=== PATIENT | female | born 1975 | race Caucasian/White ===

== ENCOUNTER 2016-09-25 12:54 | Observation (INO) | payer MEDICAID ==
[2016-09-25 12:55] VITALS: BMI 57.2
--- NOTE | 2016-09-25 13:31 | ED PDOC ---
Lower Extremity Pain/Injury Time Seen by Provider: 09/25/16 13:11 Chief Complaint (Nursing): Lower Extremity Problem/Injury Chief Complaint (Provider): Right toe pain History Per: Patient History/Exam Limitations: no limitations Onset/Duration Of Symptoms: Days (4) Current Symptoms Are (Timing): Still Present Severity: Moderate Additional History Per: Patient Additional Complaint(s): Seng Ramos is a 41 y/o female presenting to the ER on 09/25/2016 with complaints of pain to the right pad of the first digit. Pain, which she describes as "throbbing", originated three days ago after she stepped on a questionable metal object. She states the pain has been persistent since onset and is associated with erythema, prompting her to seek medical evaluation. She denies any fever, chills, nausea, vomiting, or tingling sensations. Past Medical History Reviewed: Historical Data, Nursing Documentation, Vital Signs Vital Signs: Last Vital Signs Temp 98.9 F 09/25/16 13:04 Pulse 78 09/25/16 13:04 Resp 18 09/25/16 13:04 BP 144/94 H 09/25/16 13:04 Pulse Ox 79 L 09/25/16 13:04 - Medical History PMH: Arthritis (BOTH KNEES), Asthma (VERY MILD. TAKES NO MEDS; NO INHALER), Hypothyroidism Denies: Chronic Kidney Disease - Surgical History Surgical History: Cholecystectomy (2002), Endoscopy, - Family History Family History: States: Unknown Family Hx - Social History Current smoker - smoking cessation education provided: Yes Alcohol: None Drugs: Denies - Home Medications Home Medications: Ambulatory Orders Medication Instructions Recorded Cyclobenzaprine [Flexeril] 10 mg PO TID PRN 09/25/16 Levothyroxine [Synthroid] 125 mcg PO DAILY 09/25/16 traMADol [Ultram] 25 mg PO Q6H PRN 09/25/16 - Allergies Allergies/Adverse Reactions: Allergies Allergy/AdvReac Type Severity Reaction Status Date / Time aspirin Allergy VOMITING Verified 09/25/16 13:08 IV DYE Allergy Severe ANAPHYLAXIS Uncoded 01/28/15 08:20 Review of Systems ROS Statement: Except As Marked, All Systems Reviewed And Found Negative Constitutional: Negative for: Fever, Chills Gastrointestinal: Negative for: Nausea, Vomiting Musculoskeletal: Positive for: Foot Pain ((+) right toe pain ) Neurological: Negative for: Weakness, Numbness Physical Exam - Reviewed Nursing Documentation Reviewed: Yes Vital Signs Reviewed: Yes - Physical Exam Appears: Positive for: Non-toxic, No Acute Distress Head Exam: Positive for: ATRAUMATIC, NORMOCEPHALIC Skin: Positive for: Normal Color. Negative for: Rash Eye Exam: Positive for: Normal appearance Neck: Positive for: Normal Extremity: Positive for: Tenderness ((+) ttp to first digit ), Swelling ((+) swelling and erythema to the first MTP), Other (neurovasculary intact, warm to touch; foreign object underneath skin surface noted). Negative for: Deformity Neurologic/Psych: Positive for: Alert, Oriented. Negative for: Motor/Sensory Deficits - Laboratory Results Result Diagrams: 09/25/16 16:25 09/25/16 16:25 - ECG ECG Rhythm: Positive for: Normal QRS, Normal ST Segment, Sinus Rhythm O2 Sat by Pulse Oximetry: 79 - Radiology X-Ray: Interpreted by Me X-Ray Interpretation: No Acute Disease Medical Decision Making Medical Decision Makin:11 Initial Impression- 41 y/o female with right toe pain Initial Plan- * XR Right Foot Case will be consulted with podiatry resident. 15:17 Additional order of Ancef IVPB was placed. Podiatry consulted- attempted to remove FB, however unable to do so bedside. pt will need OR for FB removal. Pt will be admitted to [facility] for surgery from podiatry. surgery will be at 645pm pt is NPO pt is medically clear for OR Documented by Felicita Rios, acting as a scribe for Petty Cabrales PA-C All medical record entries made by the Scribe were at my direction and personally dictated by me. I have reviewed the chart and agree that the record accurately reflects my personal performance of the history, physical exam, medical decision making, and the department course for this patient. I have also personally directed, reviewed, and agree with the discharge instructions and disposition. Disposition - Clinical Impression Clinical Impression: Foreign body - Patient ED Disposition Is Patient to be Admitted: Yes - Disposition Disposition Time: 17:26 Condition: STABLE - Pt Status Changed To: Hospital Disposition Of: SDS- Endo,OR,Cath,IR - POA Present On Arrival: None
[2016-09-25] MEDS ORDERED: ceFAZolin 1 GM in Sodium Chloride 0.9% 100 ML IVPB STA (15:15)
[2016-09-25] MEDS ORDERED: Lidocaine 1% Inj (20ml) IJ STA (15:21)
[2016-09-25] MEDS ORDERED: Lidocaine 1% Inj (20ml) ONE ×2 (15:22→18:46)
[2016-09-25 16:46] LABS: BASO # 0.1 K/uL (0.0-0.2); BASO % 0.7 % (0.0-2.0); EOS # 0.1 K/uL (0.0-0.7); HEMOGLOBIN 12.8 g/dL (12.0-16.0); LYMPH # 2.3 K/uL (1.0-4.3); LYMPH % 22.5 % (20.0-40.0); MEAN CORPUSCULAR HEMOGLOBIN 27.3 pg (27.0-31.0); MEAN CORPUSCULAR HGB CONC 32.9 g/dL (33.0-37.0); MEAN PLATELET VOLUME 8.5 fl (7.2-11.7); MONO # 0.5 K/uL (0.0-0.8); MONO % 4.7 % (0.0-10.0); NEUT # 7.2 K/uL (1.8-7.0); NEUT % 71.1 % (50.0-75.0); RBC 4.67 Mil/uL (3.80-5.20); RED CELL DISTRIBUTION WIDTH 15.3 % (11.5-14.5); WHITE BLOOD COUNT 10.1 K/uL (4.8-10.8)
[2016-09-25 17:01] LABS: ALB/GLOB RATIO 1.2 (1.0-2.1); ALBUMIN 4.3 g/dL (3.5-5.0); ALT/SGPT 32 U/L (9-52); AST/SGOT 26 U/L (14-36); BLOOD UREA NITROGEN 11 mg/dl (7-17); CALCIUM 9.5 mg/dL (8.4-10.2); GFR AFRICAN-AMERICAN > 60; GFR NON-AFRICAN AMERICAN > 60
--- NOTE | 2016-09-25 17:01 | RAD ---
PROCEDURE: Right Foot Radiographs. HISTORY: FB in toe COMPARISON: None. FINDINGS: BONES: Normal. No fracture. JOINTS: Normal. SOFT TISSUES: Radiopaque foreign body, needle fragment in the soft tissues readily apparent adjacent to the distal tuft region right 1st digit. OTHER FINDINGS: None. IMPRESSION: Needle fragment, foreign body 10.6 mm identified 1st digit region. This is adjacent to but does not appear to invade the distal tuft of the 1st digit.
[2016-09-25 17:10] LABS: PARTIAL THROMBOPLASTIN TIME 29.7 Seconds (25.6-37.1); PROTHROMBIN TIME 11.3 Seconds (9.8-13.1)
--- NOTE | 2016-09-25 17:36 | CP.PCM.CON ---
History of Present Illness - History of Present Illness History of Present Illness: 41 year old female patient seen at bedside in ED holding for a foreign body to right great toe. Patient states that Sunday night around 12AM she was walking around her house barefoot when she felt something go into her right big toe. Patient rates the pain as 8/10 which has worsened since Sunday. Patient describes the pain as throbbing. Patient states she tried getting the object out by soaking her right foot in a soap/sugar solution but was not successful. Patient denies N/V/F/D/C/SOB/CP. No other pedal complaints at this time. PMH: Jacy's thyroiditis, HLD PSH: FH: non-contributory SH: denies Meds: Levothyroxine All: Aspirin, IVP Dye ROS: negative except as per HPI Review of Systems - Review of Systems All systems: reviewed and no additional remarkable complaints except Past Patient History - Past Medical History & Family History Past Medical History?: Yes - Past Social History Alcohol: None Drugs: Denies - CARDIAC Hx Cardiac Disorders: No - PULMONARY Hx Asthma: Yes (VERY MILD. TAKES NO MEDS; NO INHALER) - NEUROLOGICAL Hx Neurological Disorder: No - HEENT Hx HEENT Problems: No - RENAL Hx Chronic Kidney Disease: No - ENDOCRINE/METABOLIC Hx Hypothyroidism: Yes - HEMATOLOGICAL/ONCOLOGICAL Hx Blood Disorders: No - INTEGUMENTARY Hx Dermatological Problems: No - MUSCULOSKELETAL/RHEUMATOLOGICAL Hx Arthritis: Yes (BOTH KNEES) - GASTROINTESTINAL Hx Gastrointestinal Disorders: Yes Hx Ulcer: Yes (3 ULCERS) - GENITOURINARY/GYNECOLOGICAL Hx Genitourinary Disorders: No - SURGICAL HISTORY Hx Cholecystectomy: Yes (2002) - ANESTHESIA Hx Anesthesia: Yes Hx Anesthesia Reactions: Yes (LOW HEART RATE) Hx Malignant Hyperthermia: No Meds Allergies/Adverse Reactions: Allergies Allergy/AdvReac Type Severity Reaction Status Date / Time aspirin Allergy VOMITING Verified 09/25/16 13:08 IV DYE Allergy Severe ANAPHYLAXIS Uncoded 01/28/15 08:20 Physical Exam - Constitutional Appears: Well, Non-toxic, No Acute Distress - Extremities Exam Additional comments: Vasc: DP and PT pulses palpable 2/4 b/l. CFT <3 seconds to all digits x10. TG warm to warm. Edema noted to right hallux. Neuo: Gross sensation intact b/l. Derm: Rubor noted to plantarmedial aspect of right hallux with sanches discoloration in area of foreign body entrance. No obvious open lesions noted. Ortho: pain on palpation noted to right hallux. Tenderness upon ROM to right hallux. - Neurological Exam Neurological exam: Alert, Oriented x3 - Psychiatric Exam Psychiatric exam: Normal Affect, Normal Mood Results - Vital Signs Recent Vital Signs: Last Vital Signs Temp 98.9 F 09/25/16 13:04 Pulse 78 09/25/16 13:04 Resp 18 09/25/16 13:04 BP 144/94 H 09/25/16 13:04 Pulse Ox 79 L 09/25/16 17:26 - Labs Result Diagrams: 09/25/16 16:25 09/25/16 16:25 Labs: Laboratory Results - last 24 hr 09/25/16 09/25/16 09/25/16 16:25 16:25 16:25 WBC 10.1 RBC 4.67 Hgb 12.8 Hct 38.8 MCV 83.0 MCH 27.3 MCHC 32.9 L RDW 15.3 H Plt Count 274 MPV 8.5 Neut % (Auto) 71.1 Lymph % (Auto) 22.5 [place] % (Auto) 4.7 Eos % (Auto) 1.0 Baso % (Auto) 0.7 Neut # 7.2 H Lymph # 2.3 [place] # 0.5 Eos # 0.1 Baso # 0.1 PT 11.3 INR 1.0 APTT 29.7 Sodium 137 Potassium 4.1 Chloride 101 Carbon Dioxide 28 Anion Gap 13 BUN 11 Creatinine 0.7 Est GFR ( Amer) > 60 Est GFR (Non-Af Amer) > 60 Random Glucose 87 Calcium 9.5 Total Bilirubin 0.4 AST 26 ALT 32 Alkaline Phosphatase 80 Total Protein 7.9 Albumin 4.3 Globulin 3.6 Albumin/Globulin Ratio 1.2 Serum HCG, Qual 09/25/16 16:25 WBC RBC Hgb Hct MCV MCH MCHC RDW Plt Count MPV Neut % (Auto) Lymph % (Auto) [place] % (Auto) Eos % (Auto) Baso % (Auto) Neut # Lymph # [place] # Eos # Baso # PT INR APTT Sodium Potassium Chloride Carbon Dioxide Anion Gap BUN Creatinine Est GFR ( Amer) Est GFR (Non-Af Amer) Random Glucose Calcium Total Bilirubin AST ALT Alkaline Phosphatase Total Protein Albumin Globulin Albumin/Globulin Ratio Serum HCG, Qual Negative Assessment & Plan - Assessment and Plan (Free Text) Assessment: 41 year old female PMHx Jacy's thyroiditis, HLD with foreign body in right hallux Plan: Patient seen and evaluated. Discussed with attending, Dr. Martinez. Chart, labs, vitals reviewed = WBC @10.1, afebrile X-rays reviewed: 10.6 mm foreign body [possible needle fragment] in distal right hallux. This is adjacent to but does not appear to invade the distal tuft of the hallux. Attempt was made to remove foreign body at bedside in ED however was unable to do so. Patient will need OR for foreign body removal. Patient will be admitted under family medicine. Pt NPO status was confirmed; pt last ate and drank at 7AM this morning. CXR, EKG, CBC, BMP, ordered. Pt has exhausted all conservative tx at this time and is opting for surgical intervention. Pt was explained procedure and post-operative course. All pts questions were answered to satisfaction. No guarantees were made Pt understands all risks, benefits, and complications of procedure Pt will follow up with Dr. Martinez - Date & Time Date: 09/25/16 Time: 04:45
--- NOTE | 2016-09-25 17:40 | RAD ---
HISTORY: medical clearance COMPARISON: No prior. TECHNIQUE: Chest PA and lateral FINDINGS: LUNGS: No active pulmonary disease. PLEURA: No significant pleural effusion identified. No pneumothorax apparent. CARDIOVASCULAR: Normal. OSSEOUS STRUCTURES: No significant abnormalities. VISUALIZED UPPER ABDOMEN: Normal. OTHER FINDINGS: None. IMPRESSION: No active disease.
--- NOTE | 2016-09-25 18:28 | CP.PCM.HP ---
History of Present Illness - History of Present Illness History of Present Illness: 41 year old morbid obese female patient presented to ED with right great toe pain due to foreign body. Patient states that Sunday night around 12AM she was walking around her house barefoot when she felt something go into her right big toe with minimal blood noted. Patient rates the pain as 8/10 which has worsened since Sunday. Patient describes the pain as throbbing. Patient states she tried getting the object out by soaking her right foot in a soap/sugar solution but was not successful. Patient denies N/V/F/D/C/SOB/CP. Attempt was made by Podiatry Resident to remove foreign body at bedside in ED however was unable to do so. Patient will need OR for foreign body removal. Last ate and drank at 7AM this morning. PMH: Jacy's thyroiditis, HLD, Asthma (mild intermittent), morbid obese Meds: Levothyroxine 125mcg Allergies: Aspirin, IVP Dye PSHx: Family Hx: non-contributory Social Hx: Smokes 1ppd x 28yrs. Etoh Occasional user. Present on Admission - Present on Admission Any Indicators Present on Admission: No Review of Systems - Review of Systems All systems: reviewed and no additional remarkable complaints except (mentioned in HPI) Past Patient History - Past Medical History & Family History Past Medical History?: Yes - Past Social History Alcohol: None Drugs: Denies - CARDIAC Hx Cardiac Disorders: No - PULMONARY Hx Asthma: Yes (VERY MILD. TAKES NO MEDS; NO INHALER) - NEUROLOGICAL Hx Neurological Disorder: No - HEENT Hx HEENT Problems: No - RENAL Hx Chronic Kidney Disease: No - ENDOCRINE/METABOLIC Hx Hypothyroidism: Yes - HEMATOLOGICAL/ONCOLOGICAL Hx Blood Disorders: No - INTEGUMENTARY Hx Dermatological Problems: No - MUSCULOSKELETAL/RHEUMATOLOGICAL Hx Arthritis: Yes (BOTH KNEES) - GASTROINTESTINAL Hx Gastrointestinal Disorders: Yes Hx Ulcer: Yes (3 ULCERS) - GENITOURINARY/GYNECOLOGICAL Hx Genitourinary Disorders: No - SURGICAL HISTORY Hx Cholecystectomy: Yes (2002) - ANESTHESIA Hx Anesthesia: Yes Hx Anesthesia Reactions: Yes (LOW HEART RATE) Hx Malignant Hyperthermia: No Meds Allergies/Adverse Reactions: Allergies Allergy/AdvReac Type Severity Reaction Status Date / Time aspirin Allergy VOMITING Verified 09/25/16 13:08 IV DYE Allergy Severe ANAPHYLAXIS Uncoded 01/28/15 08:20 Physical Exam - Constitutional Appears: Well, Non-toxic, No Acute Distress, Other (morbid obese) - Head Exam Head Exam: ATRAUMATIC, NORMAL INSPECTION, NORMOCEPHALIC - Eye Exam Eye Exam: EOMI, Normal appearance - Respiratory Exam Respiratory Exam: Clear to Auscultation Bilateral, NORMAL BREATHING PATTERN - Cardiovascular Exam Cardiovascular Exam: REGULAR RHYTHM, RRR, +S1, +S2 - GI/Abdominal Exam GI & Abdominal Exam: Normal Bowel Sounds, Soft. absent: Tenderness Additional comments: obese - Extremities Exam Extremities exam: Positive for: normal inspection (with right foot in wound dressing, painful around area, no other lesions noted. 2+ pulses, senation intact) - Neurological Exam Neurological exam: Alert, Oriented x3 - Psychiatric Exam Psychiatric exam: Normal Affect, Normal Mood - Skin Skin Exam: Dry, Intact, Normal Color, Warm Results - Vital Signs Recent Vital Signs: Last Vital Signs Temp 98.2 F 09/25/16 17:42 Pulse 79 09/25/16 17:42 Resp 18 09/25/16 17:42 BP 130/70 09/25/16 17:42 Pulse Ox 98 09/25/16 17:42 - Labs Result Diagrams: 09/25/16 16:25 09/25/16 16:25 Assessment & Plan (1) Foreign body Assessment and Plan: Chart, labs, vitals reviewed, unremarkable X-rays reviewed: 10.6 mm foreign body [possible needle fragment] in distal right hallux. This is adjacent to but does not appear to invade the distal tuft of the hallux. Podiatry on board, will bring patient to OR tonight for removal of foreign body EKG reviewed, NSR, no acute changes All pts questions were answered by pencil inspector Patient medically optimized for procedure at this time. Status: Acute (2) Jacy's thyroiditis Assessment and Plan: Continue current medication as prescribed. Status: Acute (3) Morbidly obese Assessment and Plan: Encourage post-op follow up for weight loss and lifestyle modifications Status: Acute
[2016-09-25] MEDS ORDERED: Midazolam 2 MG/2 ML VIAL ONE (18:42)
[2016-09-25] MEDS ORDERED: Propofol 10 mg/ml Inj (20 ML) ONE (18:42)
[2016-09-25] MEDS ORDERED: Bupivacaine 0.5% Inj(30mL) ONE (18:46)
[2016-09-25] MEDS ORDERED: Lactated Ringer's 1,000 ML IV ONE (19:17)
[2016-09-25] MEDS ORDERED: Lidocaine 1% Inj (20ml) IJ ONE (19:20)
[2016-09-25] MEDS ORDERED: Bupivacaine 0.5% 50 ML IJ ONE (19:20)
[2016-09-25] MEDS ORDERED: HYDROmorphone 0.5 mg/0.5 ml ISec IVP PRN (20:07)
--- NOTE | 2016-09-25 20:49 | PCM.SURG1 ---
Surgeon's Initial Post Op Note - Surgeon's Notes Surgeon: Dr. Manolo Martinez DPM Focus Puller: Dr. Jono Kim PGY1, Dr. Cara Webber PGY1 Type of Anesthesia: IV Sedation Pre-Operative Diagnosis: Right hallux foreign body Operative Findings: See operative report. Materials: 4-0 prolene. Injectables : none Post-Operative Diagnosis: Same as above Operation Performed: Right hallux foreign body removal Specimen/Specimens Removed: None Estimated Blood Loss: EBL {In ML}: 1 Blood Products Given: N/A Drains Used: No Drains Post-Op Condition: Good Date of Surgery/Procedure: 09/25/16 Time of Surgery/Procedure: 19:00
[2016-09-25 21:46] VITALS: BP 107/71; PULSE 75; RESP 18; TEMP 98.9; O2SAT 98
--- NOTE | 2016-09-27 00:01 | CARD ---
APPROVED REPORT EKG Measurement Heart [id number] <Conclusion> Normal sinus rhythm Normal ECG
--- NOTE | 2016-10-03 09:06 | RAD ---
PROCEDURE: Right Foot Radiographs. HISTORY: Not provided COMPARISON: None. FINDINGS: BONES: Normal. No fracture. JOINTS: Normal. SOFT TISSUES: Normal. OTHER FINDINGS: None. IMPRESSION: Normal right foot radiographs.
--- NOTE | 2016-10-04 09:33 | OP ---
PROCEDURE DATE: 09/25/2016 SURGEON: Manolo Torres DPM MILITARY LAWYER: Jono Kim, PGY1; Robb Webber PGY1 [employer] SHADE ASSEMBLER: Dr. Gastelum. ANESTHESIA: IV sedation with local, 17 mL of 1:1 mixture of 1% lidocaine plain and 0.5% Marcaine plain. PREOPERATIVE DIAGNOSIS: Right hallux foreign body. POSTOPERATIVE DIAGNOSIS: Right hallux foreign body. PROCEDURE: Right hallux foreign body removal. INDICATIONS: The patient is a 41-year-old female with the above diagnosis. The patient has requested all conservative treatment at this time and now requests surgical intervention. The patient finally consented after careful explanation of risks, benefits, complications and alternatives for surgical procedure. No guarantees were given nor implied. PROCEDURE IN DETAIL: The patient was brought into the operative room and placed on the operating room table in a supine position. A well-padded pneumatic ankle tourniquet was applied to the patient's right ankle in a supramalleolar position. Timeout was performed for identification of the correct patient and procedure. The patient received a total of 17 mL of 1% lidocaine plain and 0.5% Marcaine plain in a Handy block-type fashion to the right foot. The right foot was then prepped and draped in a normal sterile manner. The patient's right foot was then exsanguinated and the pneumatic ankle tourniquet was inflated to 250 mmHg and the procedure began. Attention was then directed to the right hallux and approximately 1.5 cm longitudinal incision was made with a #15 blade. The incision was deepened through the subcutaneous tissue using sharp and blunt dissection. Care was taken to identify and retract all vital neurovascular structures. The foreign body was then visualized through the incision. Using a curved mosquito hemostat, the foreign body was then removed from the plantar hallux. The wound was then flushed with copious amounts of sterile normal saline solution. The skin was then re-approximated and coapted using a #4-0 Prolene with simple sutures. The incision was dressed with Xeroform and the right foot was dressed with a dry sterile dressing. The attending was present through the entire case. POSTOPERATIVE CONDITION: The patient tolerated the anesthesia and procedure well and was escorted to the recovery room with vital signs stable and neurovascular status intact to the right foot. This patient will be full weightbearing in a surgical shoe and will follow up with Dr. Torres. Jono Kim DPM
--- NOTE | 2016-10-04 09:50 | OP ---
PROCEDURE DATE: 09/25/2016 SURGEON: Dr. Manolo Martinez DPM SHELF STOCKER: Dr. Jono Kim, Dr. Tomi Webber. MOTORCYCLE DESIGNER: Dr. Gastelum. ANESTHESIA: IV sedation with local 17 mL of 1:1 mixture of 1% lidocaine plain and 0.5% Marcaine. PREOPERATIVE DIAGNOSIS: Right hallux foreign body. POSTOPERATIVE DIAGNOSIS: Right hallux foreign body. NAME OF PROCEDURE: Right hallux foreign body removal. INDICATIONS: The patient is a 41-year-old female with above diagnosis. The patient has exhausted all conservative treatment at this time and now requests surgical intervention. The patient signed a consent after careful explanation of risks, benefits, complication and alternatives for surgical procedure. Jono Kim DPM
--- NOTE | 2016-10-04 10:05 | OP ---
PROCEDURE DATE: 09/25/2016 PREOPERATIVE DIAGNOSIS: Right hallux foreign body. POSTOPERATIVE DIAGNOSIS: Right hallux foreign body. PROCEDURE: Right hallux foreign body removal. SURGEON: Dr. Manolo Torres DPM. SLASHER: Dr. Jono Kim DPM, PGY1, Dr. Micheal Webber, PGY1. TYPE OF ANESTHESIA: IV sedation with local, 17 mL of 1:1 mixture of 1% lidocaine plain and 0.5% Marcaine. ANESTHESIA ADMINISTERED BY: Deepa Gastelum MD INDICATIONS: The patient is a 41-year-old female with the above diagnosis. The patient has exhausted all conservative treatment at this time and now requests surgical intervention. The patient signed the consent after careful explanation of risks, benefits, complications, and alternatives for a surgical procedure. No guarantees were given nor implied. PREPARATION: The patient was brought into the operating room and placed on the operating room table in a supine position. A well-padded pneumatic ankle tourniquet was applied to the patient's right ankle in the supramalleolar position. Timeout was performed for identification of the correct patient and procedure. The patient received a total of 17 mL of 1% lidocaine plain and 0.5% Marcaine plain in the Handy block type fashion to the right foot. The right foot was then prepped and draped in a normal sterile manner. The patient's right foot was then exsanguinated and the pneumatic ankle tourniquet was inflated to 250 mmHg and the procedure began. DESCRIPTION OF PROCEDURE: Attention was then directed to the right hallux and approximately 1.5 cm longitudinal incision was made with a #15 blade. The incision was deepened through the subcutaneous tissues using sharp and blunt dissection. Care was taken to identify and retract all vital neurovascular structures. The foreign body was then visualized through the incision. Using a curved mosquito hemostat, the foreign body was then removed from the plantar hallux. The wound was then flushed with copious amounts of sterile normal saline solution. The skin was then re-approximated and corrected using of 4-0 Prolene with simple sutures. Jono Kim DPM
== END 2016-09-25 22:30 | disposition home or self-care (01) ==
LOC: H.ER 12:54 → H.ERHOLD 17:21 → H.MEDSURG1 21:33
PROVIDERS: ADMIT Family Medicine Geriatric Medicine; ATTEND Family Medicine Geriatric Medicine
DX: S90.451A Superficial foreign body, right great toe, initial encounter (principal); X58.XXXA Exposure to other specified factors, initial encounter; Y92.009 Unspecified place in unspecified non-institutional (private) residence as the place of occurrence of the external cause; Z88.6 Allergy status to analgesic agent; Z91.041 Radiographic dye allergy status; M17.0 Bilateral primary osteoarthritis of knee; J45.20 Mild intermittent asthma, uncomplicated; F17.210 Nicotine dependence, cigarettes, uncomplicated; E78.5 Hyperlipidemia, unspecified; E66.01 Morbid (severe) obesity due to excess calories; Z68.43 Body mass index [BMI] 50.0-59.9, adult; E06.3 Autoimmune thyroiditis

== ENCOUNTER 2018-03-10 11:20 | Emergency (ER) | payer MEDICAID ==
[2018-03-10 11:43] VITALS: BMI 58.4
--- NOTE | 2018-03-10 11:51 | ED PDOC ---
Lower Extremity Pain/Injury Time Seen by Provider: 03/10/18 11:35 Chief Complaint (Nursing): Lower Extremity Problem/Injury Chief Complaint (Provider): Lower Extremity Problem/Injury History Per: Patient History/Exam Limitations: no limitations Onset/Duration Of Symptoms: Days (x1) Additional Complaint(s): 42 y/o female with history of thyroid disease presents to ER for evaluation of right knee pain after falling in the bathroom yesterday and twisting it. Patient reports pain on ambulation to both medial and lateral aspect of knee. PMD: non provided Past Medical History Reviewed: Historical Data, Nursing Documentation, Vital Signs Vital Signs: Last Vital Signs Temp 98.5 F 03/10/18 11:27 Pulse 74 03/10/18 11:27 Resp 16 03/10/18 11:27 BP 125/68 03/10/18 11:27 Pulse Ox 100 03/10/18 11:27 - Medical History PMH: Arthritis (BOTH KNEES), Asthma (VERY MILD. TAKES NO MEDS; NO INHALER), Hypothyroidism Denies: Chronic Kidney Disease - Surgical History Surgical History: Cholecystectomy (2002), Endoscopy, - Family History Family History: States: Unknown Family Hx - Home Medications Home Medications: Ambulatory Orders Medication Instructions Recorded Cyclobenzaprine [Flexeril] 10 mg PO TID PRN 09/25/16 Levothyroxine [Synthroid] 125 mcg PO DAILY 09/25/16 traMADol [Ultram] 25 mg PO Q6H PRN 09/25/16 traMADol [Ultram] 50 mg PO Q8 #10 tab 03/10/18 - Allergies Allergies/Adverse Reactions: Allergies Allergy/AdvReac Type Severity Reaction Status Date / Time aspirin Allergy VOMITING Verified 09/25/16 13:08 IV DYE Allergy Severe ANAPHYLAXIS Uncoded 01/28/15 08:20 Review of Systems ROS Statement: Except As Marked, All Systems Reviewed And Found Negative Musculoskeletal: Positive for: Leg Pain (Right knee pain) Physical Exam - Reviewed Nursing Documentation Reviewed: Yes Vital Signs Reviewed: Yes - Physical Exam Appears: Positive for: Non-toxic, No Acute Distress Head Exam: Positive for: ATRAUMATIC, NORMOCEPHALIC Skin: Positive for: Normal Color, Warm, Dry Neck: Positive for: Normal, Painless ROM, Supple Extremity: Positive for: Normal ROM (of knee), Tenderness (of right knee), Swelling (mild to right knee medially). Negative for: Deformity (of right knee), Other (instability) Neurologic/Psych: Positive for: Alert, Oriented (x3) - ECG O2 Sat by Pulse Oximetry: 100 (RA) Pulse Ox Interpretation: Normal Medical Decision Making Medical Decision Making: Time: 1145 Knee sprain, will obtain x-ray to r/o fracture and dislocation. Scribe Attestation: Documented by Maria Guadalupe Loyola, acting as a scribe for Jerry Ornelas MD. Provider Scribe Attestation: All medical record entries made by the Scribe were at my direction and personally dictated by me. I have reviewed the chart and agree that the record accurately reflects my personal performance of the history, physical exam, medical decision making, and the department course for this patient. I have also personally directed, reviewed, and agree with the discharge instructions and di sposition. Disposition - Clinical Impression Clinical Impression: Knee sprain - Patient ED Disposition Is Patient to be Admitted: No Counseled Patient/Family Regarding: Studies Performed, Diagnosis, Need For Followup, Rx Given - Disposition Referrals: Sherif Moss MD [Medical Doctor] - Disposition: Routine/Home Disposition Time: 12:31 Condition: FAIR Prescriptions: traMADol [Ultram] 50 mg PO Q8 #10 tab Instructions: Knee Sprain (DC) Forms: [employer] ([employer])
[2018-03-10 13:09] VITALS: BP 127/78; PULSE 78; RESP 19; TEMP 97.7; O2SAT 98
--- NOTE | 2018-03-10 17:02 | RAD ---
Date of service: 03/10/2018 PROCEDURE: Right Knee Radiographs. HISTORY: Trauma COMPARISON: None. FINDINGS: BONES: Questionable hypertrophic changes arising from the lateral tibial plateau however the possibility of a nondisplaced fracture cannot be excluded. Follow-up CT scan recommended. JOINTS: There is a prominent osteophyte arising from the medial aspect distal femoral condyle with tiny osteophyte arising from the medial tibial plateau. Slight spurring of the tibial spines. Tiny posterior patella osteophyte formation. JOINT EFFUSION: Evaluation for joint effusion is limited due to large body habitus. OTHER FINDINGS: None. IMPRESSION: Questionable hypertrophic changes arising from the lateral tibial plateau however the possibility of a nondisplaced fracture cannot be excluded. Follow-up CT scan recommended. Osteoarthritis. This report was placed in [facility] review folder for follow up.
== END 2018-03-10 13:19 | disposition home or self-care (01) ==
LOC: H.ER 11:20
DX: S83.91XA Sprain of unspecified site of right knee, initial encounter (principal); W19.XXXA Unspecified fall, initial encounter; Y92.002 Bathroom of unspecified non-institutional (private) residence as the place of occurrence of the external cause

== ENCOUNTER 2018-03-13 11:10 | Emergency (ER) | payer MEDICAID ==
--- NOTE | 2018-03-14 10:01 | CT ---
Date of service: 03/13/2018 PROCEDURE: CT scan of the right knee without contrast PROCEDURE: INDICATION: Pain TECHNIQUE: Multiple axial images were obtained with slice thickness of 2.5 mm. Coronal and sagittal reformatted images were obtained. Iterative reconstruction was used. Radiation dose: Total exam DLP = 535.19 mGy-cm. PROCEDURE: This CT exam was performed using one or more of the following dose reduction techniques: Automated exposure control, adjustment of the mA and/or kV according to patient size, and/or use of iterative reconstruction technique. COMPARISON: None. FINDINGS: There is diffuse bone demineralization. There is no acute displaced fracture or bone destruction. Bone alignment is normal. There is a small sclerotic focus in the subarticular lateral femoral condyle, statistically most compatible with a bone island. There is moderate tricompartmental degenerative osteoarthrosis with reduced joint spaces, marginal spurring and tibial spiking, worse in the medial compartment. There is a small suprapatellar joint effusion. The periarticular muscles are normal. There is mild prepatellar subcutaneous edema. IMPRESSION: No acute displaced fracture or dislocation. Moderate tricompartmental degenerative osteoarthrosis, worse in the medial compartment. Small suprapatellar joint effusion.
== END 2018-03-13 17:05 | disposition home or self-care (01) ==
LOC: H.EDDOWN 11:10
DX: M25.561 Pain in right knee (principal)